=== PATIENT | male | born 1975 | race Caucasian/White ===

== ENCOUNTER 2016-07-20 08:45 | Day surgery (SDC) | payer OTHER ==
[2016-07-13 10:20] LABS: HEMATOCRIT 50.9 % (37.9-51.0); HEMOGLOBIN 17.7 g/dL (13.5-17.0); HGB HCT DIFFERENCE 2.2; MEAN CORPUSCULAR HEMOGLOBIN 30.6 pg (27.0-33.4); MEAN CORPUSCULAR HGB CONC 34.8 g/dL (32.0-36.0); MEAN CORPUSCULAR VOLUME 88 fl (80-97); RED BLOOD COUNT 5.78 10^6/uL (4.35-5.55); RED CELL DISTRIBUTION WIDTH 13.1 % (11.5-14.0); WHITE BLOOD COUNT 7.5 10^3/uL (4.0-10.5)
[2016-07-13 10:37] LABS: ANION GAP 12 (5-19); BLOOD UREA NITROGEN 18 mg/dL (7-20); CALCIUM 9.9 mg/dL (8.4-10.2); CARBON DIOXIDE 24 mmol/L (22-30); CHLORIDE 105 mmol/L (98-107); CREATININE RESULT 0.95 mg/dL (0.52-1.25); GLUCOSE 116 mg/dL (75-110); POTASSIUM 4.3 mmol/L (3.6-5.0); SODIUM 141.1 mmol/L (137-145)
[2016-07-13 13:38] LABS: APPEARANCE,URINE SLIGHTLY-CLOUDY; BILIRUBIN,URINE NEGATIVE (NEGATIVE); GLUCOSE, URINE 50 mg/dL (NEGATIVE); KETONES,URINE NEGATIVE (NEGATIVE); LEUKOCYTE ESTERASE,URINE NEGATIVE (NEGATIVE); NITRITE,URINE NEGATIVE (NEGATIVE); PROTEIN,URINE 30 mg/dL (NEGATIVE); URINE SPECIFIC GRAVITY 1.024; UROBILINOGEN,URINE NEGATIVE mg/dL (<2.0)
[~2016-07-20 08:45] MED LIST: CEFAZOLIN 2 GM/D5W RTU 2 GM/50 ML RTUPB IV PRN; LACTATED RINGERS 1000 ML IV PRN; LIDOCAINE 0.5% INJ-PF (5 MG/ML) 50 ML SDV SUBCUT PRN
[2016-07-20] MEDS ORDERED: DEXAMETHASONE SOD PHOSPHATE INJ 4 MG/1 ML VIAL ONE (10:32)
[2016-07-20] MEDS ORDERED: ONDANSETRON HCL INJ/PF 4 MG/2 ML SDV ONE (10:32)
[2016-07-20] MEDS ORDERED: SUCCINYLCHOLINE CHLORIDE INJ 200 MG/10 ML VIAL ONE (10:32)
[2016-07-20] MEDS ORDERED: METOCLOPRAMIDE HCL INJ/PF 10 MG/2 ML SDV ONE (10:32)
[2016-07-20] MEDS ORDERED: LIDOCAINE 2% INJ-PF (20 MG/ML) 10 ML AMPUL ONE (10:32)
[2016-07-20] MEDS ORDERED: FENTANYL CITRATE INJ/PF 250 MCG/5 ML AMPULE ONE (10:57)
[2016-07-20] MEDS ORDERED: DEXMEDETOMIDINE INJ 80 MCG/20 ML VIAL IV ONE (10:57)
[2016-07-20] MEDS ORDERED: PROPOFOL INJ 200 MG/20 ML VIAL IV ONE (10:57)
[2016-07-20] MEDS ORDERED: MIDAZOLAM 2 MG/2 ML INJ ONE (10:57)
[2016-07-20] MEDS ORDERED: PROMETHAZINE HCL INJ 25 MG/1 ML VIAL IV PRN ×2 (12:13)
[2016-07-20] MEDS ORDERED: DIPHENHYDRAMINE HCL 50 MG/ML VIAL IV PRN (12:13)
[2016-07-20] MEDS ORDERED: MEPERIDINE HCL/PF INJ 25 MG/1 ML DISP.SYRIN IV PRN (12:13)
[2016-07-20] MEDS ORDERED: MORPHINE SULFATE 10 MG/ML INJ IV PRN ×2 (12:13→14:18)
[2016-07-20] MEDS ORDERED: FENTANYL CITRATE INJ/PF 100 MCG/2 ML AMPUL IV PRN ×3 (12:13)
[2016-07-20] MEDS ORDERED: OXYCODONE-ACETAMINOPHEN 5-325 MG TABLET PO PRN ×3 (12:13→14:18)
[2016-07-20] MEDS ORDERED: BUPIVACAINE HCL 0.5 % INJ/PF 30 ML SDV INJ ONE (13:25)
[2016-07-20] MEDS: FENTANYL CITRATE INJ/PF 100 MCG/2 ML AMPUL ONE ×2 (14:05→14:10)
[2016-07-20] MEDS ORDERED: KETOROLAC TROMETHAMINE INJ/PF 30 MG/1 ML SDV ONE (14:16)
[2016-07-20] MEDS ORDERED: ACETAMINOPHEN 100 ML IV ONE (14:17)
--- NOTE | 2016-07-20 14:17 | Operative Report ---
Operative Report DATE OF SURGERY: 07/20/16 PREOPERATIVE DIAGNOSIS: Right Radial Collateral Ligament, Lateral Ulnar Collateral Ligament, Common Extensor Tendon Tear POSTOPERATIVE DIAGNOSIS: Same OPERATION: EUA Right Elbow with Reconstruction LUCL w/ Palmaris Autograft, Radiocapitellar Synovectomy. SURGEON: RACHEL OVIEDO ANESTHESIA: GA COMPLICATIONS: None ESTIMATED BLOOD LOSS: Minimal PROCEDURE: Indication for above procedure: 41-year-old male who sustained injury at work in October 2015 MRI was done demonstrating partial tear of the common extensor origin. He successfully rehabilitated after this injury and once again reinjured the elbow and a repeat MRI was done on February demonstrating disruption of the common extensor origin, radial collateral ligament with possible partial tearing of the lateral ulnar collateral ligament. At that point we discussed treatment options attempted conservative measures without resolution. Thus the joint decision was made to proceed with operative intervention which included examination under anesthesia with possible lateral ulnar collateral ligament reconstruction utilizing autograft possible elbow arthroscopy. Risks and benefits were explained to the patient, patient verbalized understanding consented for the procedure. Procedure In Detail: Patient was seen and evaluated in the preoperative holding area. The RIGHT upper extremity was initialized and marked. Patient received 2g of Ancef IV for bacterial prophylaxis. Patient was taken back to the operative room where transferred to the operative table and placed under general anesthesia. Once they were adequately anesthetized a surgical team debriefing was performed ensuring all instrumentation was available, the surgical procedure was discussed with possible concerns reviewed. A timeout was done identifying correct patient, procedure and extremity everyone in attendance agree with this and verbalized no concerns. Once the patient was adequately anesthetized the posterior lateral pivot shift was performed demonstrating subluxation of the radial head indicative of posterior lateral rotatory instability. There was laxity with posterior drawer of the radial head as well confirmed on C-arm. With valgus stress there is also evidence of widening at the radiocapitellar joint and the ulnar humeral joint laterally. At that point the decision was made to proceed with open lateral ulnar collateral ligament reconstructed as consented. The upper extremity was prepped with ChloraPrep and draped in a sterile fashion. A sterile tourniquet was placed and tourniquet was inflated to 250 mmHg. lateral skin incision was made from the lateral condyle to the posterior aspect of the olecranon in line with Carina's interval. Blunt dissection was performed down to the fascia identifying the anconeus and ECU interval. This was then split in line with the skin incision blunt dissection was performed down to the supinator crest which was visualized utilizing a elevator. I then released a small portion of the common extensor mechanism which was partially disrupted preoperatively. This demonstrated complete disruption of the lateral ulnar collateral ligament with partial disruption of the radial collateral ligament. The capsule of the radiocapitellar joint was incised and a significant amount of fusion was encountered. The joint was copiously irrigated with normal saline. Is no evidence of chondral damage at the radiocapitellar joint there was significant edema capitellar synovitis. A partial synovectomy was then performed. At this point I turned my attention to lateral ulnar collateral ligament reconstruction. With the use of C-arm fluoroscopy the isometric point at the lateral epicondyle. Once this was confirmed a 15 mm x 5 mm docking tunnel was established. I then identified the distal insertion. Supinator crest was once again identified and under C-arm I confirmed the location which was in line with the midportion of the radial head this was then drilled and a 15 mm x 5 mm docking tunnel was established. There was a small amount of remnant remaining of the previous lateral ulnar collateral ligament. Once my 2 tunnels were complete I proceeded with harvesting of the palmaris longus autograft. Theree transverse skin incisions were made over the course of the palmaris longus first distally the palmaris longus was isolated and identified. A second and third incisions were made 5 cm and 3 cm proximal respectively. Once the palmaris longus was isolated throughout its entirety it was cut proximally and distally and pulled out of the proximal wound. Any remaining muscle which was carefully debrided from the tendon. The tendon size was approximately 4-5 mm in diameter. On the back table the tendon was sutured with a running fiber loop suture. Remnant of the radial collateral ligament and capsule was sutured with interrupted 0 Vicryl suture to avoid impingement and irritation of the graft at the radiocapitellar joint. Utilizing the Arthrex internal brace technique the tendon along with a fiber tape suture was secured into the distal tunnel with a 4.75 forked tip swivel lock. I then took a 2-0 fiber wire along with the remaining tendon and fiber tape and with the elbow at 45 of flexion and the graft was tensioned and an additional 4.75 forked tip swivel lock was placed at the isometric point with the tendon, fiber tape and 2-0 fiber wire. The excess tendon and fiber tape were excised. The wound was then irrigated with normal saline. Appropriate tensioning was confirmed with elbow flexion and extension without motion limitation or impingement. C-arm fluoroscopy was then obtained demonstrating amish of lateral elbow and stability with stress. The remaining 2-0 FiberWire was then utilized to secure the common extensor tendon back to the lateral epicondyle. I then further secured the radial collateral ligament to its remnant from the distal humerus with an interrupted #2 FiberWire. The fascia of Carina's interval was closed with a running 0 Vicryl suture. Subcutaneous tissues were closed with interrupted 3-0 Monocryl suture. Skin incisions were closed with subcuticular 3-0 Monocryl reinforced with Dermabond and Steri-Strips. 30 mL of 0.5% Marcaine without epinephrine was injected for postoperative pain control. Tourniquet was deflated. Wound was dressed with 4 x 4's and a well-padded posterior splint. Sponge counts, instrument counts, needle counts counts were correct. Patient was then awoken from anesthesia. Transferred from the operating room table to the operating room stretcher. There was no intraoperative complications patient tolerated procedure well stable to PACU. Postoperative plan: Patient will be transitioned to a hinged elbow brace 2 weeks postoperatively. Hinged brace will be set at 45 150 we will avoid active for passive supination until 4 weeks postoperatively. We then begin to gradually progress extension and supination. Strength in begins at 8 weeks postoperatively. Return to play/work without restrictions 6 months-1 year.
[2016-07-20] MEDS ORDERED: KETOROLAC TROMETHAMINE INJ/PF 30 MG/1 ML SDV IV ONE (14:18)
--- NOTE | 2016-07-20 14:18 | PDOC DISCHARGE SUMMARY ---
Discharge Summary (SDC) - Discharge Final Diagnosis: Right Elbow LUCL Reconstruction Utilizing Palmaris Longus Autograft Date of Surgery: 07/20/16 Discharge Date: 07/20/16 Treatment or Instructions: Schedule Follow Up w/ Dr. Richmond Bernard @ [facility] to be seen in 10-14 days or as scheduled Frederic: Dix: [place]: Keep splint clean/dry/intact. Ice and elevate May begin finger range of motion attempting to make full fist. Stool softener of choice when on pain medication. Prescriptions: Oxycodone HCl/Acetaminophen [Percocet 5-325 mg Tablet] 1 - 2 tab PO ASDIR PRN # 50 tablet PRN Reason: Discharge Diet: As Tolerated Discharge Activity: No Lifting Over 10 Pounds, No Lifting/Push/Pulling Report the Following to Your Physician Immediately: Fever over 101 Degrees, Unusual Bleeding, Redness, Swelling, Warmth, Increased Soreness, Numbness, Tingling Sensation
[2016-07-20 16:07] VITALS: BP 116/78
== END 2016-07-20 16:13 | disposition home or self-care (01) ==
LOC: OROUT 08:45
PROVIDERS: ATTEND Orthopaedic Surgery
PROC: 0RBL0ZZ Excision of Right Elbow Joint, Open Approach (ICD-10-PCS; 2016-07-20)
PROC: 0MU Bursae and Ligaments, Supplement (ICD-10-PCS; principal; 2016-07-20 10:30)
DX: S56.911D Strain of unspecified muscles, fascia and tendons at forearm level, right arm, subsequent encounter (principal); M77.11 Lateral epicondylitis, right elbow; F17.210 Nicotine dependence, cigarettes, uncomplicated; M65.831 Other synovitis and tenosynovitis, right forearm; M25.521 Pain in right elbow; Z79.1 Long term (current) use of non-steroidal anti-inflammatories (NSAID); Z79.899 Other long term (current) drug therapy
CPT/HCPCS: 36415; 85027; 80048; 81001; 73070; 24344; 24102; J2250; J1100; J3010 ×2; J1885; J2765; J0330; J2405; J2704; J3490 ×2; J0690; J0131; 01740

== ENCOUNTER 2018-10-28 14:08 | Emergency (ER) | payer SELFPAY ==
[2018-10-28] MEDS ORDERED: IBUPROFEN 600 MG TABLET PO ONE (14:36)
[2018-10-28] MEDS ORDERED: ACETAMINOPHEN 325 MG TABLET PO ONE (14:36)
--- NOTE | 2018-10-28 14:49 | ER Document Report ---
ED Extremity Problem, Upper - General Chief Complaint: Arm Problem Stated Complaint: ARM PROBLEM Time Seen by Provider: 10/28/18 14:21 Primary Care Provider: LEELEE CARBAJAL PA-C [Primary Care Provider] - Follow up as needed Notes: 43-year-old male with no significant past medical history presents to the emergency department with swelling of the distal left ulna x3 days. He noticed it when he woke up and he states it was about a "dime size", and then today when he got up to go to work he said it was acutely painful and had worsening swelling. He said it is worse when he hangs his arm to his side or when he makes a fist. No erythema is seen, patient denies fevers or chills, no shortness of breath or chest pain, denies nausea or vomiting, denies inability to use his left arm. Denies trauma to the site, denies bug bite, unknown etiology. TRAVEL OUTSIDE OF THE [place] IN LAST 30 DAYS: No - Related Data Allergies/Adverse Reactions: No Known Allergies Allergy (Verified 07/13/16 09:01) Past Medical History - Social History Smoking Status: Former Smoker - quit 2 weeks ago Family History: Reviewed & Not Pertinent - Past Medical History Cardiac Medical History: Denies: Hx Coronary Artery Disease, Hx Heart Attack, Hx Hypertension Pulmonary Medical History: Denies: Hx Asthma, Hx Bronchitis, Hx COPD, Hx Pneumonia Neurological Medical History: Denies: Hx Cerebrovascular Accident, Hx Seizures Musculoskeletal Medical History: Denies Hx Arthritis - Immunizations Hx Diphtheria, Pertussis, Tetanus Vaccination: Yes Review of Systems - Review of Systems Constitutional: See HPI EENT: No symptoms reported Cardiovascular: See HPI Respiratory: No symptoms reported Gastrointestinal: See HPI Genitourinary: See HPI Male Genitourinary: No symptoms reported Musculoskeletal: No symptoms reported Skin: See HPI Hematologic/Lymphatic: No symptoms reported Neurological/Psychological: No symptoms reported Physical Exam - Vital signs Vitals: Temp Pulse Resp BP Pulse Ox 98.1 F 107 H 13 159/83 H 95 10/28/18 14:14 10/28/18 14:14 10/28/18 14:14 10/28/18 14:14 10/28/18 14:14 - Notes Notes: PHYSICAL EXAMINATION: Reviewed vital signs and charting by RN GENERAL: Alert, interacts well. No acute distress. HEAD: Normocephalic, atraumatic. EYES: Pupils equal, round, and reactive to light. Extraocular movements intact. ENT: Oral mucosa moist, tongue midline. NECK: Full range of motion. Supple. Trachea midline. LUNGS: Clear to auscultation bilaterally, no wheezes, rales, or rhonchi. No respiratory distress. HEART: Regular rhythm, tachycardia. No murmur ABDOMEN: No distention. Bowel sounds present EXTREMITIES: Moves all 4 extremities spontaneously. Edema to the distal left ulna with acute tenderness to palpation. Skin is warm but no significant temperature difference from the right side, no obvious erythema or areas of demarcation, no cyanosis. PSYCH: Normal affect, normal mood. SKIN: Warm, dry, normal turgor. No rashes or lesions noted. Course - Re-evaluation Re-evalutation: 10/28/18 14:49 Overall well-appearing. I looked at the area of swelling with ultrasound but did not see an obvious fluid pocket or any obvious distortion. Acute onset so I will obtain imaging and get some basic labs to ensure there is no systemic infectious process, no air seen in x-ray or any other concerning process going on. 10/28/18 15:09 10/28/18 16:18 X-ray was read as negative for any air and soft tissue and just for soft tissue swelling, labs all within normal limits. At this time there is no emergent process and patient can discharge with follow-up with his primary care provider. Vital signs normalized when I reassessed him in the room and his pulse was 96. Stable for discharge. 10/28/18 16:19 - Vital Signs Vital signs: Temp Pulse Resp BP Pulse Ox 98.1 F 107 H 13 159/83 H 95 10/28/18 14:14 10/28/18 14:14 10/28/18 14:14 10/28/18 14:14 10/28/18 14:14 - Laboratory Result Diagrams: 10/28/18 15:20 10/28/18 15:20 Discharge - Discharge Clinical Impression: Left arm swelling Condition: Good Disposition: HOME, SELF-CARE Additional Instructions: You are seen in the emergency department this afternoon for left arm swelling. Your work-up did not show anything concerning that would require you to stay in the hospital. It is unclear why you are having this while and I would like you to follow-up with your primary in the next week if the symptoms persist. In the meantime you can take Motrin 600 mg every 6 hours and/or Tylenol 1006 hours as needed. Also, you can ice it for 20 minutes at a time every couple of hours to help with the swelling. Your primary care provider may want to do further work- up outside the scope of this emergency department but you can be assured there is nothing we saw here that is worrisome at this time. If you get worsening swelling with fever, the area becomes red and inflamed, you start losing feeling in your hand, you get numbness, tingling, paralysis in your left arm please return to the emergency department for reevaluation. Forms: Return to Work Referrals: LEELEE CARBAJAL PA-C [Primary Care Provider] - Follow up as needed
--- NOTE | 2018-10-28 15:14 | RADIOLOGY REPORT (SQ) ---
EXAM DESCRIPTION: FOREARM LEFT COMPLETED DATE/TIME: 10/28/2018 3:00 pm REASON FOR STUDY: distal ulna swelling COMPARISON: None. NUMBER OF VIEWS: Two views left radius and ulna. LIMITATIONS: None. FINDINGS: Bones intact. Soft tissue swelling along the distal ulna. No definite radiopaque foreign body. OTHER: No other significant finding. IMPRESSION: Soft tissue swelling without underlying fracture or radiopaque foreign body. TECHNICAL DOCUMENTATION: JOB ID: [id number] Reading location - IP/workstation name: [email or web address]
[2018-10-28 15:29] LABS: ABSOLUTE EOSINOPHILS # (AUTO) 0.2 10^3/uL (0.0-0.6); ABSOLUTE LYMPHOCYTES (AUTO) 2.4 10^3/uL (0.5-4.7); ABSOLUTE MONOCYTES (AUTO) 0.7 10^3/uL (0.1-1.4); ABSOLUTE NEUT (AUTO) 6.1 10^3/uL (1.7-8.2); BASOPHILS % (AUTO) 0.5 % (0-2); EOSINOPHILS % (AUTO) 1.7 % (0-6); HEMATOCRIT 47.7 % (37.9-51.0); HEMOGLOBIN 16.7 g/dL (13.5-17.0); LYMPHOCYTES % (AUTO) 26.1 % (13-45); MEAN CORPUSCULAR HEMOGLOBIN 30.8 pg (27.0-33.4); MEAN CORPUSCULAR HGB CONC 34.9 g/dL (32.0-36.0); MEAN CORPUSCULAR VOLUME 88 fl (80-97); MONOCYTES % (AUTO) 7.1 % (3-13); PLATELET COUNT 228 10^3/uL (150-450); RED CELL DISTRIBUTION WIDTH 12.9 % (11.5-14.0); SEGMENTED NEUTROPHILS % (AUTO) 64.6 % (42-78); TOTAL CELLS COUNTED % (AUTO) 100 %; WHITE BLOOD COUNT 9.4 10^3/uL (4.0-10.5)
[2018-10-28 15:46] LABS: ANION GAP 9 (5-19); BLOOD UREA NITROGEN 14 mg/dL (7-20); CALCIUM 9.9 mg/dL (8.4-10.2); CARBON DIOXIDE 26 mmol/L (22-30); CHLORIDE 104 mmol/L (98-107); GLUCOSE 101 mg/dL (75-110); POTASSIUM 4.1 mmol/L (3.6-5.0); SODIUM 139.4 mmol/L (137-145)
[2018-10-28 16:23] VITALS: BP 120/77
== END 2018-10-28 16:24 | disposition home or self-care (01) ==
LOC: ER 14:08
DX: R22.32 Localized swelling, mass and lump, left upper limb (principal)
CPT/HCPCS: 36415; 80048; 85025; 99283

== ENCOUNTER 2019-02-03 13:07 | Emergency (ER) | payer SELFPAY ==
[2019-02-03 13:20] VITALS: BP 131/80
== END 2019-02-03 15:08 | disposition left against medical advice (07) ==
LOC: ER 13:07
DX: Z53.21 Procedure and treatment not carried out due to patient leaving prior to being seen by health care provider (principal)